=== PATIENT | male | born 1965 | race Caucasian/White ===

== ENCOUNTER 2021-07-18 09:05 | Emergency (ER) | payer BC ==
[2021-07-18 09:29] LABS: #Basophils 0.1 thou/uL (0.0-0.2); #Lymphocytes 1.9 thou/uL (1.20-3.40); #Monocytes 0.7 thou/uL (0.11-0.59); %Eosinophils 0.4 % (0.0-10.0); %Lymphocytes 21.5 % (21.0-51.0); %Monocytes 7.7 % (0.0-10.0); %Neutrophils 69.4 % (42.0-75.0); Hemoglobin 15.3 g/dL (14.0-18.0); Mean Corpuscular HGB CONC 32.1 g/dL (32.0-36.0); Mean Corpuscular Hemoglobin 28.7 pg (27.0-31.0); Mean Corpuscular Volume 89.2 fL (78.0-98.0); Platelet Count 228 thou/uL (130-400); RBC Distribution Width 11.4 % (11.5-14.5); Red Blood Cell (RBC) Count 5.36 mill/uL (4.70-6.10); White Blood Cell (WBC) Count 8.7 thou/uL (4.8-10.8)
[2021-07-18] MEDS ORDERED: Lactated Ringer's 1,000 ML ONE ×2 (09:41→10:04)
[2021-07-18] MEDS ORDERED: Ziprasidone 20 MG VIAL ONE (09:41)
[2021-07-18] MEDS ORDERED: Dicyclomine 10 MG CAP ONE (09:41)
[2021-07-18] MEDS ORDERED: Ondansetron PF 4 MG/2 ML Vial ONE (09:41)
[2021-07-18 09:44] LABS: ALT (SGPT) 29 U/L (8-55); AST (SGOT) 13 U/L (5-34); Albumin 3.8 g/dL (3.5-5.0); Alkaline Phosphatase 85 U/L (40-110); Anion Gap 18 mmol/L (10-20); BUN (Urea Nitrogen) 11 mg/dL (8.4-25.7); Bilirubin, Total 0.3 mg/dL (0.2-1.2); Calc. Creatinine Clearance 0 mL/min (70-130); Calcium 8.9 mg/dL (7.8-10.44); Carbon Dioxide 27 mmol/L (22-29); Chloride 93 mmol/L (98-107); Globulin 2.9 g/dL (2.4-3.5); Lipase 55 U/L (8-78); Magnesium 1.7 mg/dL (1.6-2.6); Potassium 3.6 mmol/L (3.5-5.1); Protein, Total 6.7 g/dL (6.0-8.3); Sodium 134 mmol/L (136-145)
[2021-07-18 09:53] LABS: Glucose 615 mg/dL (70-105)
[2021-07-18] MEDS ORDERED: Ondansetron PF 4 MG/2 ML Vial IVP SCH (10:00)
[2021-07-18] MEDS ORDERED: Dicyclomine 10 MG CAP PO SCH (10:00)
[2021-07-18] MEDS ORDERED: Insulin Regular 300 UNITS/3 ML VIAL ONE (10:04)
[2021-07-18 10:31] LABS: Base Excess-Venous 1.2 mmol/L (-2.0 to 3.0); Bicarbonate (HCO3v) 27.1 mmol/L (22.0-28.0); CO2 Tension (PvCO2) 46.9 mmHg (42.0-51.0); Calcium, Ionized 1.08 mmol/L (1.15-1.33); Chloride 95 mmol/L (98-107); Hemoglobin - Calc 14.7 g/dL (14.0-18.0); Potassium 3.6 mmol/L (3.5-5.1); Sodium 134 mmol/L (138-145); T. Carbon Dioxide 28.6 mmol/L (22.0-28.0); vO2 Saturation-calc 87.4 % (60.0-85.0)
== END 2021-07-18 12:30 | disposition home or self-care (01) ==
LOC: MADERS 09:05
DX: E11.65 Type 2 diabetes mellitus with hyperglycemia (principal); R00.2 Palpitations; R11.2 Nausea with vomiting, unspecified; R19.7 Diarrhea, unspecified; I10 Essential (primary) hypertension; Z79.84 Long term (current) use of oral hypoglycemic drugs; Z79.82 Long term (current) use of aspirin; Z79.899 Other long term (current) drug therapy
CPT/HCPCS: 36416; 71045; 80053; 82010; 82330; 82803; 83690; 83735; 84443; 85025; 93005; 94760; 96374; J1815; J2405; J3486; J7120

== ENCOUNTER 2023-04-26 18:03 | Emergency (ER) | payer BC, OTHER ==
[2023-04-26] MEDS ORDERED: Fluorescein Opthalmic Strip ONE (18:19)
[2023-04-26] MEDS ORDERED: Tetracaine 0.5% PF 4 ML BOT ONE (18:20)
== END 2023-04-26 18:51 | disposition home or self-care (01) ==
LOC: MADERS 18:03
DX: T15.92XA Foreign body on external eye, part unspecified, left eye, initial encounter (principal); E11.9 Type 2 diabetes mellitus without complications; E78.00 Pure hypercholesterolemia, unspecified; I10 Essential (primary) hypertension; F17.210 Nicotine dependence, cigarettes, uncomplicated; Z79.899 Other long term (current) drug therapy; Z79.84 Long term (current) use of oral hypoglycemic drugs; W44.9XXA Unspecified foreign body entering into or through a natural orifice, initial encounter
CPT/HCPCS: 99283

== ENCOUNTER 2024-05-24 04:00 | Emergency (ER) | payer BC, OTHER ==
[2024-05-24] MEDS ORDERED: Boostrix 0.5 ML (Tdap) VIAL (>/=7 yrs of age) ONE (04:03)
[2024-05-24] MEDS ORDERED: HYDROcodone/Acetaminophen 5/325 mg Tablet ONE (04:05)
== END 2024-05-24 04:36 | disposition home or self-care (01) ==
LOC: MADERS 04:00
DX: S60.212A Contusion of left wrist, initial encounter (principal); S60.812A Abrasion of left wrist, initial encounter; F17.210 Nicotine dependence, cigarettes, uncomplicated; E11.9 Type 2 diabetes mellitus without complications; I10 Essential (primary) hypertension; E78.00 Pure hypercholesterolemia, unspecified; Z79.84 Long term (current) use of oral hypoglycemic drugs; Z55.6 Problems related to health literacy; Z79.899 Other long term (current) drug therapy; X58.XXXA Exposure to other specified factors, initial encounter
CPT/HCPCS: 90471; 90715